=== PATIENT | male | born 1975 | race Caucasian/White ===

== ENCOUNTER 2020-05-25 15:03 | Emergency (ER) | payer MEDICAID, SELFPAY ==
[~2020-05-25] VITALS: Ht 167.6 cm; Wt 90.7 kg
--- NOTE | 2020-05-25 15:15 | NUR ---
Pt placed on tent for evaluation
--- NOTE | 2020-05-25 15:16 | NUR ---
Pt presents to ER with sore throat and headache , skin pink and warm , cap refill <3, VSS , respirations even and unlabored, VS WNL, will cont to monitor.
[2020-05-25 15:56] VITALS: BP_SYST 157
--- NOTE | 2020-05-25 16:50 | NUR ---
Dr Navas at bedside examining patient
--- NOTE | 2020-05-25 17:50 | NUR ---
Patient given written and verbal discharge instructions and verbalizes understanding. ER MD discussed with patient the results and treatment provided. Patient in stable condition. ID arm band removed. Patient educated on pain management and to follow up with PMD. Pain Scale 0/10. Opportunity for questions provided and answered. Medication side effect fact sheet provided.
[2020-05-25 17:51] VITALS: BP_SYST 157
== END 2020-05-25 17:51 | disposition home or self-care (01) ==
LOC: SED 15:03
DX: B34.9 Viral infection, unspecified (principal); J45.909 Unspecified asthma, uncomplicated; Z20.828 Contact with and (suspected) exposure to other viral communicable diseases
CPT/HCPCS: 99283; U0003; C9803-CS

== ENCOUNTER 2020-06-11 19:44 | Emergency (ER) | payer MEDICAID, OTHER, SELFPAY ==
[~2020-06-11] VITALS: Ht 172.7 cm; Wt 117.9 kg
[2020-06-11 19:50] VITALS: BP_SYST 156
--- NOTE | 2020-06-11 19:50 | NUR ---
Patient triaged and placed in waiting room. VSS and patient appears in no acute distress at this time. Accompanied by SELF, awaiting available bed, and MD notified of need for MSE.
--- NOTE | 2020-06-11 21:00 | NUR ---
ER examining patient in the triage room.
[2020-06-11] MEDS ORDERED: IBUPROFEN 800 MG TABLET PO ONE (21:15)
--- NOTE | 2020-06-11 21:41 | NUR ---
Pt taken to radiogy ambulatory w/ steady gait.
[2020-06-11 22:25] VITALS: BP_SYST 149
--- NOTE | 2020-06-11 22:25 | NUR ---
Patient given written and verbal discharge instructions and verbalizes understanding. ER MD discussed with patient the results and treatment provided. Patient in stable condition. ID arm band removed. Rx of IBUPROFEN given. Patient educated on pain management and to follow up with PMD. Pain Scale 4/10. Opportunity for questions provided and answered. Medication side effect fact sheet provided.
== END 2020-06-11 22:25 | disposition home or self-care (01) ==
LOC: SED 19:44
DX: S50.01XA Contusion of right elbow, initial encounter (principal); M25.561 Pain in right knee; J45.909 Unspecified asthma, uncomplicated; W01.0XXA Fall on same level from slipping, tripping and stumbling without subsequent striking against object, initial encounter; Y93.89 Activity, other specified; Y92.89 Other specified places as the place of occurrence of the external cause; Y99.8 Other external cause status
CPT/HCPCS: 73564; 99284

== ENCOUNTER 2022-02-17 09:12 | Emergency (ER) | payer MEDICAID, OTHER ==
[~2022-02-17] VITALS: Ht 172.7 cm; Wt 99.8 kg
[2022-02-17 09:25] VITALS: BP_SYST 128
--- NOTE | 2022-02-17 09:30 | NUR ---
Pt to bed #7 coming from home ambulatory with steady gait. Pt c/o having cough , congestion, and headache since last night. Headache rates pain 10/. NKA. Has hx of Asthma and bronchitis. VSS. Connected pt to pvc monitor. Denies chest pain and sob. No n/v. Bed in lowest position.
[2022-02-17 09:46] VITALS: BP_SYST 143
--- NOTE | 2022-02-17 10:40 | NUR ---
Nadeem jamison in [facility] - 02/17/22 at [id number] Nunez at bedside examining pt.
--- NOTE | 2022-02-17 10:46 | NUR ---
Dr. Nunez was going to examine pt but pt not present in room. Looked for pt in bathrooms and waiting room but pt is still no where to be found. Pt left without beeing seen by Dr. Nunez.
== END 2022-02-17 10:46 | disposition left against medical advice (07) ==
LOC: SED 09:12
DX: R51.9 Headache, unspecified (principal); Z53.21 Procedure and treatment not carried out due to patient leaving prior to being seen by health care provider

== ENCOUNTER 2022-08-02 00:48 | Emergency (ER) | payer MEDICAID ==
[~2022-08-02] VITALS: Ht 172.7 cm; Wt 102.1 kg
[2022-08-02 01:12] VITALS: BP_SYST 184
--- NOTE | 2022-08-02 01:15 | NUR ---
Pt from home with c/o knee pain from accident 1 year ago. Pt states it is swelling and rated pain 8/10. No visiable swelling at this time. Pt ambulatory and following commands. Pt hypertensive at 184/118, Dr. Christiansen made aware.
--- NOTE | 2022-08-02 01:23 | NUR ---
Patient to ER bed HB1 to gown for evaluation. Side rails up.
--- NOTE | 2022-08-02 01:34 | NUR ---
Dr. Christiansen with patient at bedside.
[2022-08-02] MEDS ORDERED: CYCLOBENZAPRINE HCL 10 MG TABLET (FLEXERIL) PO ONE (01:45)
[2022-08-02] MEDS ORDERED: KETOROLAC TROMETHAMINE 60 MG/2 ML VIAL IM ONE ×2 (01:45)
--- NOTE | 2022-08-02 02:14 | NUR ---
Pt request to wait in waiting room . Dr. Christiansen made aware.
[2022-08-02] MEDS ORDERED: LIDO1ADH71 TD (02:16)
[2022-08-02] MEDS ORDERED: CYCL10TA24 PO (02:16)
[2022-08-02] MEDS ORDERED: ACET-2634 PO (02:16)
[2022-08-02 03:19] VITALS: BP_SYST 188
--- NOTE | 2022-08-02 03:19 | NUR ---
Patient given written and verbal discharge instructions and verbalizes understanding. ER Dr. Christiansen discussed with patient the results and treatment provided. Patient in stable condition. ID arm band removed. Rx of flexeril, lidocaine, and tylenol given. Patient educated on pain management and to follow up with PMD. Pain Scale 0. Opportunity for questions provided and answered. Medication side effect fact sheet provided.
== END 2022-08-02 03:16 | disposition home or self-care (01) ==
LOC: SED 00:48
DX: S83.8X1A Sprain of other specified parts of right knee, initial encounter (principal); I10 Essential (primary) hypertension; J45.909 Unspecified asthma, uncomplicated; Z79.899 Other long term (current) drug therapy; V89.2XXA Person injured in unspecified motor-vehicle accident, traffic, initial encounter; Y93.89 Activity, other specified; Y92.89 Other specified places as the place of occurrence of the external cause; Y99.8 Other external cause status
CPT/HCPCS: 99283; 73560; 96372; J1885

== ENCOUNTER 2023-08-28 01:35 | Emergency (ER) | payer MEDICAID, OTHER ==
[~2023-08-28] VITALS: Ht 170.2 cm; Wt 90.7 kg
[~2023-08-28 01:35] MED LIST: ACET-2634 PO; CYCL10TA24 PO; LIDO1ADH71 TD
[2023-08-28 01:49] VITALS: BP_SYST 108; PULSE 102; RESP 18; TEMP 98.3; O2SAT 98
[2023-08-28 03:05] LABS: BASOPHILS # (AUTO) 0.1 K/uL (0.0-0.2); BASOPHILS % (AUTO) 0.8 % (0.0-2.0); EOSINOPHILS # (AUTO) 0.2 K/uL (0.0-0.4); EOSINOPHILS % (AUTO) 2.3 % (0.0-4.0); HEMATOCRIT 40.3 % (36-54); HEMOGLOBIN 13.6 g/dL (14.0-18.0); LYMPHOCYTES # (AUTO) 2.4 K/uL (1.0-5.5); MEAN CORPUSCULAR HEMOGLOBIN 27 pg (27-31); MEAN CORPUSCULAR HGB CONC 34 % (32-36); MEAN CORPUSCULAR VOLUME 81 fL (79.0-98.0); MONOCYTES # (AUTO) 0.6 K/uL (0.0-1.0); MONOCYTES % (AUTO) 6.8 % (1.7-9.3); NEUTROPHILS # (AUTO) 5.1 K/uL (1.8-7.7); NEUTROPHILS % (AUTO) 61.1 % (40.0-70.0); PLATELET COUNT (AUTO) 289 K/uL (130-430); RED BLOOD CELL COUNT(AUTO) 4.98 MIL/uL (4.2-6.2); WHITE BLOOD COUNT (AUTO) 8.4 K/uL (4.8-10.8)
[2023-08-28] MEDS ORDERED: FAMOTIDINE 20 MG TABLET PO ONE (03:15)
[2023-08-28] MEDS ORDERED: MAG-AL HYDROX/SIMETH 30 ML UDC PO ONE (03:15)
[2023-08-28] MEDS ORDERED: ONDANSETRON 4 MG ODT TAB PO ONE (03:15)
[2023-08-28 04:14] LABS: ALANINE AMINOTRANSFERASE 18 U/L (12-78); ALBUMIN 3.4 g/dL (3.4-4.8); ANION GAP 3 (5-15); CARBON DIOXIDE 33 mmol/L (23-29); CHLORIDE 98 mmol/L (98-107); CREATININE 1.14 mg/dL (0.55-1.30); GFR AFRICAN AMERICAN 89 mL/min (>90); GLUCOSE 100 mg/dL (74-106); POTASSIUM 3.2 mmol/L (3.5-5.1); SODIUM SERUM 134 mmol/L (136-145); TOTAL BILIRUBIN 0.7 mg/dL (0.0-1.0); TOTAL PROTEIN, SERUM 6.6 g/dL (6.4-8.3); UREA NITROGEN, BLOOD 19 mg/dL (8-21)
[2023-08-28 04:16] LABS: ASPARTATE AMINOTRANSFERASE 5 U/L (10-37); GFR NON AFRICAN-AMERICAN 74 mL/min (>90)
[2023-08-28] MEDS ORDERED: NACL 0.9% 1,000 ML IV ONE (04:45)
[2023-08-28] MEDS ORDERED: ONDANSETRON HCL 4 MG/2 ML VIAL IVP ONE (04:45)
[2023-08-28] MEDS ORDERED: OMEP20CA15 PO (05:45)
[2023-08-28] MEDS ORDERED: METO-290 PO (05:45)
[2023-08-28 06:10] VITALS: BP_SYST 138; PULSE 66; RESP 18; TEMP 98.4; O2SAT 97
== END 2023-08-28 06:10 | disposition home or self-care (01) ==
LOC: SED 01:35
DX: R10.10 Upper abdominal pain, unspecified (principal); R11.2 Nausea with vomiting, unspecified; K21.9 Gastro-esophageal reflux disease without esophagitis; E87.1 Hypo-osmolality and hyponatremia; E87.6 Hypokalemia; J45.909 Unspecified asthma, uncomplicated; I10 Essential (primary) hypertension; Z79.899 Other long term (current) drug therapy
CPT/HCPCS: 99285; 96374; 71045; 96361; 80053; 83880; 85025; 85379; 84484; 36415; 93005; Q0162; J2405; J7030

== ENCOUNTER 2024-05-30 18:26 | Emergency (ER) | payer MEDICAID ==
[~2024-05-30] VITALS: Ht 172.7 cm; Wt 108.0 kg
[~2024-05-30 18:26] MED LIST changes: +METO-290 PO; +OMEP20CA15 PO
[2024-05-30 19:03] VITALS: BP_SYST 123; PULSE 98; RESP 20; TEMP 98.1; O2SAT 97
[2024-05-30 19:15] LABS: INFLUENZA TYPE A Negative (NEGATIVE); INFLUENZA TYPE B NEGATIVE (NEGATIVE)
[2024-05-30] MEDS ORDERED: NIRM1TAB9 PO (19:59)
[2024-05-30 20:07] VITALS: BP_SYST 121; PULSE 94; RESP 20; TEMP 98.1; O2SAT 97
== END 2024-05-30 20:07 | disposition home or self-care (01) ==
LOC: SED 18:26
DX: U07.1 COVID-19 (principal); J45.909 Unspecified asthma, uncomplicated; I10 Essential (primary) hypertension; Z79.899 Other long term (current) drug therapy; Z79.2 Long term (current) use of antibiotics
CPT/HCPCS: 36415; 71045; 99284